=== PATIENT | female | born 1985 | race Caucasian/White ===

== ENCOUNTER 2020-09-28 22:46 | Emergency (ER) | payer OTHER, SELFPAY ==
--- OUTSIDE RECORDS SUMMARY | 2020-09-28 23:01 | XMS REPORT | Continuity of Care Document ---
:1985 Author Organization [facility] t Address [address] Singh [address] [place] [id number] Care Team Providers Name Role Phone Julian Pinon DO Attending Clinician Casey No Attending Clinician Problems This patient has no known problems. Allergies, Adverse Reactions, Alerts This patient has no known allergies or adverse reactions. Medications This patient has no known medications. Procedures This patient has no known procedures. Encounters Start End Encounter Admission Attending Care Care Encounter Source Date/Time Date/Time Type Type Clinicians Facility Department ID 2020-04-28 2020-04-28 Patient CHELSEY Pinon [id number] 00:00:00 00:00:00 Outreach [facility] [id number] [facility] [id number] PAVILLION [id number] 2019-11-07 2019-11-07 Office CHELSEY Resendiz [id number] 10:27:04 11:19:41 Visit Liv Peña [employer] [id number] [facility] [id number] MATERNAL [id number] & CHILD [address] [place] [address] Results This patient has no known results.
[2020-09-28 23:25] LABS: Urine Blood 3+ (Negative); Urine Glucose Negative (Negative); Urine Protein 2+ (Negative); Urine Specific Gravity >=1.030 (1.005-1.030)
[2020-09-28 23:29] LABS: Absolute Lymphocytes (CBC) 2.2 K/uL (0.7-4.9); Basophils % 0.7 % (0-1.3); Hematocrit 36.7 % (36.0-45.0); Lymphocytes % 22.3 % (15.3-44.8); MPV 7.6 fL (7.6-11.3); RBC Red Blood Cell Count 4.79 M/uL (3.86-4.86)
[2020-09-28 23:40] LABS: ALT/SGPT 19 U/L (12-78); AST/SGOT 7 U/L (15-37); Albumin 4.3 g/dL (3.4-5.0); Alkaline Phosphatase 67 U/L (45-117); BUN Blood Urea Nitrogen 12 mg/dL (7-18); Bicarbonate 28 mmol/L (21-32); Bilirubin Direct < 0.1 mg/dL (0-0.2); Bilirubin Total 0.2 mg/dL (0.2-1.0); Glucose Level 118 mg/dL (74-106); Lipase 146 U/L (73-393); Potassium 3.5 mmol/L (3.5-5.1); Sodium Level 141 mmol/L (136-145)
[2020-09-28] MEDS ORDERED: KETOROLAC 30 MG/ML INJ ONE (23:49)
[2020-09-28 23:54] LABS: Urine Specific Gravity/Preg >1.030 (1.005-1.030)
[2020-09-29] MEDS ORDERED: ONDANSETRON 4 MG/2 ML VIAL ONE (00:14)
[2020-09-29] MEDS ORDERED: NA CHLORIDE 0.9% 1,000 ML ONE (00:14)
[2020-09-29] MEDS ORDERED: MORPHINE 4 MG/ML SYR ONE (00:37)
--- NOTE | 2020-09-29 00:45 | EDPHYS ---
Physician Documentation [facility] Name: Radha Mars Age: 35 yrs Sex: Female : 1985 Arrival Date: 09/28/2020 Time: 22:47 Bed 12 Private MD: ED Physician Anthony Deng HPI: 09/28 23:49 This 35 yrs old Female presents to ER via Ambulatory with complaints of Low tw4 Back Pain - Left Side. 23:49 The patient presents with pain that is acute. The symptoms are located in the low back. tw4 The pain radiates to the left mid back. The problem was sustained from unknown cause. Onset: The symptoms/episode began/occurred last week. Modifying factors: The patient symptoms are alleviated by nothing, the patient symptoms are aggravated by movement. Associated signs and symptoms: Pertinent positives: nausea, vomiting. The patient has not experienced similar symptoms in the past. 09/29 00:43 The patient has been recently seen by a physician: the patient's primary care provider. 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 - Social history:: Smoking status: Patient denies any tobacco usage or history of. ROS: 23:49 Constitutional: Negative for fever, chills, and weight loss, Eyes: Negative for injury, tw4 pain, redness, and discharge, Cardiovascular: Negative for chest pain, palpitations, and edema, Respiratory: Negative for shortness of breath, cough, wheezing, and pleuritic chest pain, Abdomen/GI: Negative for abdominal pain, nausea, vomiting, diarrhea, and constipation, MS/Extremity: Negative for injury and deformity, Skin: Negative for injury, rash, and discoloration, Neuro: Negative for headache, weakness, numbness, tingling, and seizure. 23:49 Back: Positive for decreased range of motion, pain with movement, flank pain. Exam: 23:49 Constitutional: This is a well developed, well nourished patient who is awake, alert, tw4 and in no acute distress. Head/Face: Normocephalic, atraumatic. Chest/axilla: Normal chest wall appearance and motion. Nontender with no deformity. No lesions are appreciated. Cardiovascular: Regular rate and rhythm with a normal S1 and S2. No gallops, murmurs, or rubs. Normal PMI, no JVD. No pulse deficits. Respiratory: Lungs have equal breath sounds bilaterally, clear to auscultation and percussion. No rales, rhonchi or wheezes noted. No increased work of breathing, no retractions or nasal flaring. Abdomen/GI: Soft, non-tender, with normal bowel sounds. No distension or tympany. No guarding or rebound. No evidence of tenderness throughout. Skin: Warm, dry with normal turgor. Normal color with no rashes, no lesions, and no evidence of cellulitis. MS/ Extremity: Pulses equal, no cyanosis. Neurovascular intact. Full, normal range of motion. Neuro: Awake and alert, GCS 15, oriented to person, place, time, and situation. Cranial nerves II-XII grossly intact. Motor strength 5/5 in all extremities. Sensory grossly intact. Cerebellar exam normal. Normal gait. 23:49 Back: pain, that is mild, ROM is normal, normal spinal alignment noted. Vital Signs: 22:58 BP 166 / 86; Pulse 55; Resp 18; Temp 97.5; Pulse Ox 100% on R/A; Weight 77.11 kg; em Height 5 ft. 2 in. (157.48 cm); Pain 9/10; 22:58 Body Mass Index 31.09 (77.11 kg, 157.48 cm) em MDM: 23:49 Differential diagnosis: arthritis, strain, fracture, sciatica. Data reviewed: vital tw4 signs, nurses notes. Data interpreted: conveyor monitor: not applicable for this patient encounter. Counseling: I had a detailed discussion with the patient and/or guardian regarding: the historical points, exam findings, and any diagnostic results supporting the discharge/admit diagnosis. 09/29 00:02 Patient medically screened. tw4 00:45 Data reviewed: lab test result(s), cardiac enzymes, electrolytes, radiologic studies, tw4 CT scan. Medication response: morphine markedly relieved the patient's pain. Symptoms have improved, Response to treatment: the patient's symptoms have markedly improved after treatment, and as a result, I will discharge patient, administer pain medication. Special discussion: Based on the patient's Hx, exam, and Dx evaluation, there is no indication for emergent surgery or inpatient Tx. It is understood by the patient/guardian that if the Sx's persist or worsen they need to return immediately for re-evaluation. I discussed with the patient/guardian in detail that at this point there is no indication for admission to the hospital. It is understood, however, that if the symptoms persist or worsen the patient needs to return immediately for re-evaluation. 09/28 23:03 Order name: Basic Metabolic Panel; Complete Time: 23:57 em 09/28 23:03 Order name: CBC with Diff; Complete Time: 23:57 em 09/28 23:03 Order name: Hepatic Function; Complete Time: 23:57 em 09/28 23:03 Order name: Lipase; Complete Time: 23:57 em 09/28 23:25 Order name: Urine Dipstick-Ancillary; Complete Time: 23:57 EDMS 09/28 23:28 Order name: Urine --Ancillary (enter results); Complete Time: 23:57 mw2 09/28 23:03 Order name: IV Saline Lock; Complete Time: 23:30 em 09/28 23:03 Order name: Labs collected and sent; Complete Time: 23:30 em 09/28 23:03 Order name: Urine Dipstick-Ancillary (obtain specimen); Complete Time: 23:30 em 09/28 23:25 Order name: CT Stone Protocol tw4 Administered Medications: 09/28 23:30 Drug: Ketorolac 30 mg Route: IVP; Site: right antecubital; em 23:54 Follow up: Response: No adverse reaction; Marked relief of symptoms; Pain is decreased em 09/29 00:01 Drug: NS 0.9% 1000 ml Route: IV; Rate: 1 bolus; Site: right antecubital; em 01:09 Follow up: IV Status: Completed infusion; IV Intake: 1000ml em 00:01 Drug: Zofran (Ondansetron) 4 mg Route: IVP; Site: right antecubital; em 00:34 Follow up: Response: No adverse reaction em 00:17 Drug: morphine 4 mg Route: IVP; Site: right antecubital; em 00:34 Follow up: Response: No adverse reaction; Marked relief of symptoms; Pain is decreased em Disposition Summary: 09/29/20 00:44 Discharge Ordered Location: Home tw4 Problem: new tw4 Symptoms: have improved tw4 Condition: Stable tw4 Diagnosis - Calculus of kidney with calculus of ureter tw4 Followup: tw4 - With: Private Physician - When: Upon discharge from the Emergency Department - Reason: Recheck today's complaints, Continuance of care, Re-evaluation by your physician Followup: tw4 - With: Daniel Silveira MD - When: Upon discharge from the Emergency Department - Reason: Recheck today's complaints, Continuance of care, Re-evaluation by your physician Discharge Instructions: - Discharge Summary Sheet tw4 - Kidney Stones tw4 - Renal Colic tw4 - Renal Colic, [id number] tw4 - Kidney Stones, [id number] tw4 Forms: - Medication Reconciliation Form tw4 - Thank You Letter tw4 - Antibiotic Education tw4 - Prescription Opioid Use tw4 Prescriptions: - Flomax 0.4 mg Oral capsule - take 1 capsule by ORAL route once daily 1/2 hour following the same meal each tw4 day; 20 capsule; Refills: 0, Product Selection Permitted - Ibuprofen 800 mg Oral Tablet - take 1 tablet by ORAL route every 8 hours As needed take with food; 30 tablet; tw4 Refills: 0, Product Selection Permitted - Tramadol 50 mg Oral Tablet - take 1 tablet by ORAL route every 8 hours as needed; 12 tablet; Refills: 0, tw4 Product Selection Permitted Signatures: Dispatcher [employer] Marcos Contreras, Anthony Soriano RN, MD MD tw4
--- NOTE | 2020-09-29 00:45 | ER ---
Nurse's Notes [facility] Name: Radha Mars Age: 35 yrs Sex: Female : 1985 Arrival Date: 09/28/2020 Time: 22:47 Bed 12 Private MD: Diagnosis: Calculus of kidney with calculus of ureter Presentation: 09/28 22:58 Chief complaint: Patient states: lower back pain for 1 week, was seen at PCP and given em Medrol pack and Flexeril with only relief one day, also reports burning with urination that started today, N/V vomited 2 times. Coronavirus screen: Client denies travel out of the [place] in the last 14 days. Ebola Screen: Patient negative for fever greater than or equal to 101.5 degrees Fahrenheit, and additional compatible Ebola Virus Disease symptoms Patient denies exposure to infectious person. Patient denies travel to an Ebola-affected area in the 21 days before illness onset. No symptoms or risks identified at this time. Initial Sepsis Screen: Does the patient meet any 2 criteria? No. Patient's initial sepsis screen is negative. Does the patient have a suspected source of infection? No. Patient's initial sepsis screen is negative. Risk Assessment: Do you want to hurt yourself or someone else? Patient reports no desire to harm self or others. Onset of symptoms was September 28, 2020. 22:58 Method Of Arrival: Ambulatory em 22:58 Acuity: TALON 3 em Triage Assessment: 23:12 General: Appears uncomfortable, Behavior is calm, cooperative, appropriate for age, kg restless. Pain: Complains of pain in left low back and left mid back Pain currently is 10 out of 10 on a pain scale. at worst was 10 out of 10 on a pain scale. level that patient reports is acceptable is 3 out of 10 on a pain scale. 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 - Social history:: Smoking status: Patient denies any tobacco usage or history of. Screenin:12 Abuse screen: Denies threats or abuse. Denies injuries from another. Nutritional kg screening: No deficits noted. Tuberculosis screening: No symptoms or risk factors identified. Fall Risk None identified. Assessment: 23:13 : Reports burning with urination, pain in left in suprapubic area flank(s), in lower kg back with urination. 09/29 00:30 Reassessment: Patient appears in no apparent distress at this time. Patient and/or em family updated on plan of care and expected duration. Pain level reassessed. Patient is alert, oriented x 3, equal unlabored respirations, skin warm/dry/pink. Patient states feeling better. Vital Signs: 09/28 22:58 BP 166 / 86; Pulse 55; Resp 18; Temp 97.5; Pulse Ox 100% on R/A; Weight 77.11 kg; em Height 5 ft. 2 in. (157.48 cm); Pain 9/10; 22:58 Body Mass Index 31.09 (77.11 kg, 157.48 cm) em ED Course: 22:47 Patient arrived in ED. wm 23:02 Triage completed. em 23:02 Arm band placed on. em 23:05 Anthony Deng MD is Attending Physician. tw4 23:12 Patient has correct armband on for positive identification. kg 23:12 Inserted saline lock: 20 gauge in right antecubital area, using aseptic technique. kg 23:12 No provider procedures requiring assistance completed. kg 23:54 Marcos Fontanez, ERICK is Primary Nurse. em 23:59 CT Stone Protocol In Process Unspecified. EDMS 09/29 00:44 Daniel Silveira MD is Referral Physician. tw4 01:09 IV discontinued, intact, bleeding controlled, No redness/swelling at site. Pressure em dressing applied. Administered Medications: 09/28 23:30 Drug: Ketorolac 30 mg Route: IVP; Site: right antecubital; em 23:54 Follow up: Response: No adverse reaction; Marked relief of symptoms; Pain is decreased em 09/29 00:01 Drug: NS 0.9% 1000 ml Route: IV; Rate: 1 bolus; Site: right antecubital; em 01:09 Follow up: IV Status: Completed infusion; IV Intake: 1000ml em 00:01 Drug: Zofran (Ondansetron) 4 mg Route: IVP; Site: right antecubital; em 00:34 Follow up: Response: No adverse reaction em 00:17 Drug: morphine 4 mg Route: IVP; Site: right antecubital; em 00:34 Follow up: Response: No adverse reaction; Marked relief of symptoms; Pain is decreased em Intake: 01:09 IV: 1000ml; Total: 1000ml. em Outcome: 00:44 Discharge ordered by . tw4 01:09 Discharged to home ambulatory. em 01:09 Condition: good 01:09 Discharge instructions given to patient, Instructed on discharge instructions, follow up and referral plans. medication usage, Demonstrated understanding of instructions, follow-up care, medications, Prescriptions given X 3. 01:10 Patient left the ED. em Signatures: Dispatcher [employer] Marcos Contreras, RN RN Anthony Aragon MD MD tw4 Verónica Ramos RN RN Tiara Noble
[2020-09-29] MEDS ORDERED: TAMSULOSIN 0.4 MG SR CAP ONE (01:19)
[2020-09-29 01:24] VITALS: BP 166/86; TEMP 97.5; O2SAT 100
--- NOTE | 2020-09-29 10:33 | RAD REPORT ---
EXAM DESCRIPTION: CT - Stone Protocol - 09/29/2020 6:36 am CLINICAL HISTORY: 35-year-old female with flank pain. COMPARISON: None. TECHNIQUE: CT of the abdomen and pelvis was performed without intravenous or oral contrast. Multipla vijay reformatted images were provided. This exam was performed according to our departmental dose opti mization program which includes use of automated exposure control, adjustment of the mA and/or kV acc ording to patient size and/or use of iterative reconstruction technique. FINDINGS: Evaluation of solid organ pathology is limited secondary to lack of intravenous contrast. Within these limitations, the following observations are made. Chest: Evaluation through the lung bases reveals no focal opacity, pleural effusion or pneumothorax. Heart size is within normal limits. No pericardial effusion. Abdomen and pelvis: Hydronephrosis and hydroureter of the LEFT kidney secondary to distal obstructing calculus at the level of the ureterovesical junction measuring 4 mm. Punctate focus of calcification present within the dependent lower pole of the LEFT kidney measuring 1 mm. Minimal perinephric stranding. The possibility of superimposed infectious process cannot be exc luded on the noncontrast CT examination. Additionally at the level of the LEFT pelvis is a large ovarian cyst with hypoattenuating contents, c ircumscribed in appearance measuring up to 4.7 x 4.5 cm, range series 201, image 114). Best practice guidelines:4.7 cm indeterminate ovarian cyst. Recommend prompt follow-up with pelvic US. Reference: J Am Candelaria Radiol 2013;10:675-681 The liver, gallbladder, pancreas, spleen, RIGHT kidney and bilateral adrenal glands are within normal limits. The vessels are normal in caliber. No abdominopelvic lymph nodes are noted to be pathologically enlarged by CT measurement criteria. The bowel is within normal limits without abnormal bowel wall thickness or bowel dilation. No free air. No free abdominopelvic fluid collections. The appendix is not identified. The osseous structures are within normal limits. IMPRESSION: 1. Hydronephrosis and hydroureter of the LEFT kidney secondary to distal obstructing c alculus at the level of the ureterovesical junction measuring 4 mm. 2. Minimal perinephric stranding. The possibility of superimposed infectious process cannot be excl uded on the noncontrast CT examination. 3. Additionally at the level of the LEFT pelvis is a large ovarian cyst with hypoattenuating conten ts, circumscribed in appearance measuring up to 4.7 x 4.5 cm. Best practice guidelines:4.7 cm indeter minate ovarian cyst. Recommend prompt follow-up with pelvic US. Electronically signed by: Jordyn Hdz MD 09/29/2020 12:19 AM CDT Due to temporary technical issues with the PACS/Fluency reporting system, reports are being signed by the in house radiologists without review as a courtesy to insure prompt reporting. The interpreting radiologist is fully responsible for the content of the report.
== END 2020-09-29 01:10 | disposition home or self-care (01) ==
LOC: ER 22:46
DX: N20.2 Calculus of kidney with calculus of ureter (principal)
CPT/HCPCS: 36415; 74176; 76377; 80048; 80076; 81003; 81025; 83690; 85025; 96361; 96374; 96375; 99284